=== PATIENT | female | born 1990 | race Caucasian/White ===

== ENCOUNTER 2018-07-03 19:30 | Emergency (ER) | payer OTHER ==
[~2018-07-03] VITALS: Ht 165.1 cm; Wt 58.2 kg
[2018-07-03 20:18] VITALS: Ht 165.1 cm; Wt 58.2 kg
[2018-07-03 22:15] VITALS: BP 115/70
== END 2018-07-03 22:15 | disposition home or self-care (01) ==
LOC: ED 19:30
DX: S20.212A Contusion of left front wall of thorax, initial encounter (principal); W22.8XXA Striking against or struck by other objects, initial encounter; Y93.89 Activity, other specified; Y92.89 Other specified places as the place of occurrence of the external cause; Y99.8 Other external cause status
CPT/HCPCS: J1885